=== PATIENT | female | born 1950 | race Caucasian/White ===

== ENCOUNTER 2025-05-06 15:23 | Emergency (ER) | payer BC ==
[~2025-05-06] VITALS: Ht 167.6 cm; Wt 58.1 kg
[2025-05-06] MEDS ORDERED: ONDANSETRON HCL/PF 4 MG/2 ML VIAL ONE (15:31)
[2025-05-06] MEDS ORDERED: FAMOTIDINE/PF INJ 20 MG/2 ML VIAL IV ONE (15:31)
[2025-05-06] MEDS ORDERED: MECLIZINE HCL 25 MG TABLET ONE (15:42)
[2025-05-06 15:47] LABS: PLATELET COUNT (AUTO) 249 K/uL (150-450); RED BLOOD CELL COUNT(AUTO) 4.07 MIL/uL (4.0-5.2); RED CELL DISTRIBUTION WIDTH 13.9 % (11.5-15.0); WHITE BLOOD COUNT (AUTO) 6.5 K/uL (4.3-11.0)
[2025-05-06] MEDS: ONDANSETRON HCL/PF 4 MG/2 ML VIAL IVP ONE (15:49)
[2025-05-06] MEDS: FAMOTIDINE/PF INJ 20 MG/2 ML VIAL IV ONE (15:49)
[2025-05-06] MEDS: IV NS 0.9% 1,000 ML BAG IV ONE (15:49)
[2025-05-06 15:56] LABS: CALCIUM, SERUM 9.9 mg/dL (8.5-10.1); CREATININE 1.1 mg/dL (0.6-1.3); SODIUM SERUM 135 mmol/L (136-145); UREA NITROGEN, BLOOD 24 mg/dL (7-18)
[2025-05-06 16:03] LABS: ASPARTATE AMINOTRANSFERASE 23 U/L (15-37); TOTAL PROTEIN, SERUM 7.6 g/dL (6.4-8.2)
[2025-05-06] MEDS: MECLIZINE HCL 25 MG TABLET PO ONE (16:06)
[2025-05-06] MEDS ORDERED: METOCLOPRAMIDE HCL 10 MG/2 ML VIAL ONE (16:53)
[2025-05-06] MEDS: METOCLOPRAMIDE HCL 10 MG/2 ML VIAL IV ONE (17:09)
[2025-05-06 17:18] LABS: APPEARANCE,URINE CLEAR (CLEAR); BLOOD, URINE Negative Ery/uL (NEGATIVE); LEUKOCYTE ESTERASE ,URINE Negative (NEGATIVE); UGLUCOSE Negative (NEGATIVE)
[2025-05-06 17:19] LABS: NITRITE, URINE NEGATIVE (NEGATIVE)
[2025-05-06 17:20] LABS: ADD URINE CULTURE NO; SQUAMOUS EPITHELIAL CELL,UR Few /HPF (None Seen); URINE AMORPHOUS PHOSPHATES Moderate /HPF (None Seen)
[2025-05-06] MEDS ORDERED: MECL-159 PO (17:22)
[2025-05-06] MEDS ORDERED: ONDA4TAB5 PO (17:22)
[2025-05-06 17:58] VITALS: BP 124/74; TEMP 98.6; O2SAT 99
== END 2025-05-06 17:58 | disposition home or self-care (01) ==
LOC: ER 15:25
DX: R42 Dizziness and giddiness (principal); R11.10 Vomiting, unspecified; I10 Essential (primary) hypertension
CPT/HCPCS: 99285; 96374; 96375; 71045; 96361; 93005; 85025; 80048; 83690; 80076; 81001; 36415; 84484; J8597; J1200; J1308; J2765; J2405; J7030; 87086-TC